=== PATIENT | male | born 1960 | race Caucasian/White ===

== ENCOUNTER 2016-08-05 20:22 | Emergency (ER) | payer SELFPAY ==
[~2016-08-05] VITALS: Ht 165.1 cm; Wt 74.4 kg
[~2016-08-05 20:22] MED LIST: ALBUTEROL0.09 MG/A1 IH; CLARITIN-D 5 MG1 T12 PO; ENALAPRIL10 MG PO; LEVOTHYROXINE0.2 M2 PO; SIMCOR 1000 MG-1 TER PO
[2016-08-05 20:28] VITALS: BP 145/93
--- NOTE | 2016-08-05 21:19 | NUR ---
PT TAKEN TO OF2
--- NOTE | 2016-08-05 21:20 | NUR ---
Dr. Bethea evaluating patient
[2016-08-05] MEDS ORDERED: methylPREDNISolone SS 125 MG in WATER STERILE 2 ML IM ONE (21:25)
[2016-08-05] MEDS ORDERED: ALBUTEROL 0.083% 2.5 MG/3 ML NEBU INH ONE (21:25)
--- NOTE | 2016-08-05 21:37 | NUR ---
RT WITH PATIENT
--- NOTE | 2016-08-05 21:38 | NUR ---
PATIENT PRESENTS TO ED WITH NON-PRODUCTIVE COUGH . PT STATES HE NEEDS A MED-REFILL FOR HIS INHALER. PT REPORTS HX OF ASTHMA . DENIES N/V/D; SKIN IS PINK/WARM/DRY; AAOX4 WITH EVEN AND STEADY GAIT; LUNGS CLEAR BL; HR EVEN AND REGULAR; PT DENIES ANY FEVER, SOB AT THIS TIME; PATIENT STATES PAIN OF 4/10 AT THIS TIME; VSS; PATIENT POSITIONED FOR COMFORT; HOB ELEVATED; BEDRAILS UP X2; BED DOWN. ER MD MADE AWARE OF PT STATUS.
[2016-08-05 22:18] VITALS: BP 137/78
--- NOTE | 2016-08-05 22:18 | NUR ---
Patient discharged with v/s stable. Written and verbal after care instructions given and explained. Patient alert, oriented and verbalized understanding of instructions. Ambulatory with steady gait. All questions addressed prior to discharge. ID band removed. Patient advised to follow up with PMD. Rx of QVar and Proventil given. Patient educated on indication of medication including possible reaction and side effects. Opportunity to ask questions provided and answered.
== END 2016-08-05 22:18 | disposition home or self-care (01) ==
LOC: MED 20:22
DX: J45.901 Unspecified asthma with (acute) exacerbation (principal); I10 Essential (primary) hypertension; Z91.010 Allergy to peanuts; Z79.899 Other long term (current) drug therapy
CPT/HCPCS: 94640; 96372; 99283; J2930; J7613

== ENCOUNTER 2017-09-17 13:51 | Emergency (ER) | payer SELFPAY ==
[~2017-09-17] VITALS: Ht 165.1 cm; Wt 77.3 kg
[~2017-09-17 13:51] MED LIST changes: +ALBU0.0939 IH; -ALBUTEROL0.09 MG/A1 IH; -CLARITIN-D 5 MG1 T12 PO; +ENAL10TA PO; -ENALAPRIL10 MG PO; -LEVOTHYROXINE0.2 M2 PO; +LORA1T1237 PO; -SIMCOR 1000 MG-1 TER PO; +[UNRECOGNIZED DRUG - CODE] PO; +[UNRECOGNIZED DRUG - CODE] PO
[2017-09-17 14:00] VITALS: BP 124/90
--- NOTE | 2017-09-17 14:04 | NUR ---
PT AMBULATED TO BED 10
--- NOTE | 2017-09-17 14:06 | NUR ---
PATIENT PRESENTS TO ED WITH C/O SOB LAST NIGHT, TOOK INHALER WITH NO RELIEF HX; ASTHMA, HTN, PSORIASIS, HYPOTHYROIDISM. AAOX4 WITH EVEN AND STEADY GAIT; LUNGS WHEEZING BL; NONPRODUCTIVE COUGHING NOTED, HR EVEN AND REGULAR; PT DENIES ANY FEVER, CP AT THIS TIME;DENIES N/V/D; SKIN IS PINK/WARM/DRY; DENIES PAIN, VSS; PATIENT POSITIONED FOR COMFORT; HOB ELEVATED; BEDRAILS UP X2; BED DOWN. ER MD MADE AWARE OF PT STATUS.
[2017-09-17] MEDS ORDERED: ALBUTEROL SULFATE/IPRATROPIU 3 ML SOL IH ONE (14:10)
[2017-09-17] MEDS ORDERED: ALBUTEROL 0.083% 2.5 MG/3 ML NEBU INH ONE (14:10)
[2017-09-17] MEDS ORDERED: predniSONE 20 MG TAB PO ONE (14:10)
--- NOTE | 2017-09-17 14:18 | NUR ---
DR CORREA EVALUATING PT AT BEDSIDE
--- NOTE | 2017-09-17 14:18 | NUR ---
RT AT BEDSIDE
[2017-09-17 14:53] VITALS: BP 144/91
--- NOTE | 2017-09-17 14:53 | NUR ---
Patient discharged with v/s stable. Written and verbal after care instructions given and explained. Patient alert, oriented and verbalized understanding of instructions. Ambulatory with steady gait. All questions addressed prior to discharge. ID band removed. Patient advised to follow up with PMD. Rx of prednisone and albuterol , budesonide given. Patient educated on indication of medication including possible reaction and side effects. Opportunity to ask questions provided and answered.
== END 2017-09-17 14:53 | disposition home or self-care (01) ==
LOC: MED 13:51
DX: J45.901 Unspecified asthma with (acute) exacerbation (principal); Z91.010 Allergy to peanuts; Z91.012 Allergy to eggs; I10 Essential (primary) hypertension; E03.9 Hypothyroidism, unspecified
CPT/HCPCS: 94640; 99283; J7512; J7613; J7620

== ENCOUNTER 2017-11-13 09:59 | Emergency (ER) | payer MEDICAID ==
[~2017-11-13] VITALS: Ht 165.1 cm; Wt 76.4 kg
[2017-11-13 10:05] VITALS: BP 133/92
[2017-11-13] MEDS ORDERED: ATOR10TA PO (10:31)
--- NOTE | 2017-11-13 10:40 | NUR ---
PT AMBULATED TO ER BED 3.
--- NOTE | 2017-11-13 10:51 | NUR ---
57/M PRESENT TO ER C/O SOB SINCE LAST NIGHT; RUN OUT OF NEBULIZER MEDICATION ALBUTEROL, BUDESONIDE. DENIES N/V/D; SKIN IS PINK/WARM/DRY; AAOX4 WITH EVEN AND STEADY GAIT; HR EVEN AND REGULAR; PT DENIES ANY FEVER, CP, OR COUGH AT THIS TIME; PATIENT STATES PAIN OF 0/10 AT THIS TIME; VSS; PATIENT POSITIONED FOR COMFORT; HOB ELEVATED; BEDRAILS UP X2; BED DOWN. ER MD MADE AWARE OF PT STATUS.
--- NOTE | 2017-11-13 11:01 | NUR ---
Patient being evaluated by physician at bedside.
[2017-11-13] MEDS ORDERED: predniSONE 20 MG TAB PO ONE (11:10)
[2017-11-13] MEDS ORDERED: IPRATROPIUM 0.02% 0.5 MG/2.5 ML NEBU INH ONE (11:10)
[2017-11-13] MEDS ORDERED: ALBUTEROL 0.083% 2.5 MG/3 ML NEBU INH ONE (11:10)
--- NOTE | 2017-11-13 11:59 | NUR ---
Patient discharged with v/s stable. Written and verbal after care instructions given and explained. Patient alert, oriented and verbalized understanding of instructions. Ambulatory with steady gait. All questions addressed prior to discharge. ID band removed. Patient advised to follow up with PMD. Rx of PREDNISONE 20MG, ALBUTEROL 0.083%, BEUDESONIDE 0.5/2ML INH SUSP. given. Patient educated on indication of medication including possible reaction and side effects. Opportunity to ask questions provided and answered.
[2017-11-13 12:01] VITALS: BP 121/82
== END 2017-11-13 11:59 | disposition home or self-care (01) ==
LOC: MED 09:59
DX: J45.901 Unspecified asthma with (acute) exacerbation (principal); I10 Essential (primary) hypertension; E03.9 Hypothyroidism, unspecified; Z79.899 Other long term (current) drug therapy; Z91.012 Allergy to eggs; Z91.011 Allergy to milk products; Z91.018 Allergy to other foods
CPT/HCPCS: 94640; 99283; J7512; J7613; J7644

== ENCOUNTER 2018-09-26 16:23 | Emergency (ER) | payer OTHER ==
[~2018-09-26] VITALS: Ht 165.1 cm; Wt 77.1 kg
[~2018-09-26 16:23] MED LIST changes: +ATOR10TA PO; -ENAL10TA PO; +ENAL10TA34 PO
[2018-09-26 16:29] VITALS: BP 121/72
--- NOTE | 2018-09-26 16:34 | NUR ---
PT AMBULATES TO BED 7
[2018-09-26] MEDS ORDERED: ALBUTEROL SULFATE/IPRATROPIU 3 ML SOL IH ONE ×2 (16:40→17:00)
[2018-09-26] MEDS ORDERED: predniSONE 20 MG TAB PO ONE (16:40)
--- NOTE | 2018-09-26 16:42 | NUR ---
PT C/O SOB SINCE LAST NIGHT. USED INHALER , NOT RELIEVED. RLL AND LLL WHEEZING. HX. ASTHMA. VSS; PATIENT POSITIONED FOR COMFORT; HOB ELEVATED; BEDRAILS UP X1; BED DOWN. ER MD MADE AWARE OF PT STATUS.
[2018-09-26 17:34] VITALS: BP 121/72
--- NOTE | 2018-09-26 17:34 | NUR ---
Patient discharged with v/s stable. Written and verbal after care instructions given and explained. Patient alert, oriented and verbalized understanding of instructions. Ambulatory with steady gait. All questions addressed prior to discharge. ID band removed. Patient advised to follow up with PMD. Rx of PREDNISONE, ALBUTEROL SULFATE AND INHALER given. Patient educated on indication of medication including possible reaction and side effects. Opportunity to ask questions provided and answered.
== END 2018-09-26 17:34 | disposition home or self-care (01) ==
LOC: MED 16:23
DX: J45.901 Unspecified asthma with (acute) exacerbation (principal); I10 Essential (primary) hypertension; E03.9 Hypothyroidism, unspecified; Z79.899 Other long term (current) drug therapy; Z91.018 Allergy to other foods
CPT/HCPCS: 94640; 99284; J7512; J7620

== ENCOUNTER 2019-07-25 08:38 | Emergency (ER) | payer MEDICAID, OTHER ==
[~2019-07-25] VITALS: Ht 165.1 cm; Wt 79.4 kg
[2019-07-25 08:43] VITALS: BP 134/70
--- NOTE | 2019-07-25 08:49 | NUR ---
Patient ambulated to bed 8. RN evaluating patient at bedside.
--- NOTE | 2019-07-25 08:52 | NUR ---
58 y/o m presents to ER c/o right sided abdominal pain radiating to the back x2 days. Pain level 5/10. Pt was seen at [facility] and per pt they tested everything except his urine and he wants to get his urine tested. Pt received [place] at [facility] which helped the pain, but the pain returned. Pt denies any urinary symptoms. HOB elevated, bed in lowest position, bed rail up x1. Waiting for ERMD to evaluate pt. Allergies: NKA Med hx: kidney stones, asthma, cirrohsis
--- NOTE | 2019-07-25 09:11 | NUR ---
Dr. Cole evaluating pt at bedside
--- NOTE | 2019-07-25 09:21 | NUR ---
Urine collected and sent to lab
[2019-07-25 09:27] LABS: APPEARANCE,URINE CLEAR (CLEAR); BILIRUBIN,URINE NEGATIVE (NEGATIVE); BLOOD, URINE 3+ (NEGATIVE); COLOR,URINE YELLOW (YELLOW); LEUKOCYTE ESTERASE ,URINE NEGATIVE (NEGATIVE); NITRITE, URINE NEGATIVE (NEGATIVE); UGLUCOSE NEGATIVE (NEGATIVE)
[2019-07-25 09:36] LABS: RBC,URINE 50-80 /HPF (0-5); WBC,URINE 0-5 /HPF (0-5)
--- NOTE | 2019-07-25 10:00 | NUR ---
Dr. Cole updating pt on discharge instructions. Dr. Cole encouraged pt to drink plenty of fluid and to take Ibuprofen 600mg every 6 hours as needed for pain.
[2019-07-25 10:03] VITALS: BP 134/70
--- NOTE | 2019-07-25 10:03 | NUR ---
Patient discharged with v/s stable. Written and verbal after care instructions given and explained. Patient verbalized understanding. Ambulatory with steady gait. All questions addressed prior to discharge. Advised to follow up with PMD.
== END 2019-07-25 10:03 | disposition home or self-care (01) ==
LOC: MED 08:38
DX: R10.9 Unspecified abdominal pain (principal); J45.909 Unspecified asthma, uncomplicated; I10 Essential (primary) hypertension; E07.9 Disorder of thyroid, unspecified; Z79.899 Other long term (current) drug therapy; Z87.442 Personal history of urinary calculi; Z91.010 Allergy to peanuts
CPT/HCPCS: 81001; 99283

== ENCOUNTER 2019-07-28 13:52 | Emergency (ER) | payer MEDICAID ==
[~2019-07-28] VITALS: Ht 170.2 cm; Wt 96.6 kg
[2019-07-28 14:15] VITALS: BP 131/85
--- NOTE | 2019-07-28 14:17 | NUR ---
PT TO BED 1
--- NOTE | 2019-07-28 14:22 | NUR ---
58/m C/O RASH TO PTS CHEST AND BACK X 4 DAYS. PT STATES HE WAS SEEN IN [facility] X 2 DAYS AGO AND DIAGNOSED WITH SHINGLES. CLEAR VESICLES ON ERYTHEMATOUS BASE NOTED ON RT CHEST ANTERIORLY AND POSTERIORLY THAT DOES NOT CROSS THE MIDLINE. NO OPEN VESICLES SEEN. PT STATES PAIN HAS BEEN PRESENT X 4 DAYS, BURNING SENSATION. RX WITH TRAMADOL AND ACYCLOVIR. PT STATES THE PAIN IS INCREASING. NO ITCHING. PT REQUESTING STRONGER PAIN MED. PLAQUE LESIONS ON ABD THAT PT STATES IS PSORIASIS. HX- PSORIASIS
--- NOTE | 2019-07-28 15:02 | NUR ---
DR OROPEZA EVALUATING PT AT BEDSIDE
[2019-07-28 15:14] LABS: APPEARANCE,URINE CLEAR (CLEAR); BILIRUBIN,URINE NEGATIVE (NEGATIVE); BLOOD, URINE 3+ (NEGATIVE); COLOR,URINE YELLOW (YELLOW); LEUKOCYTE ESTERASE ,URINE NEGATIVE (NEGATIVE); NITRITE, URINE NEGATIVE (NEGATIVE); UGLUCOSE NEGATIVE (NEGATIVE)
--- NOTE | 2019-07-28 15:44 | NUR ---
PER PT, DUE TO INSURANCE HE WOULD NOT BE ABLE TO FILL THE RX WRITTEN FROM TODAY (NORCO) UNTIL TOMORROW. HE IS REQUESTING FOR ONE TABLET OF NORCO BEFORE D/C. STATES HIS IS ON THE WAY TO PICK HIM UP FROM HOSPITAL. NOTIFIED DR. OROPEZA.
[2019-07-28] MEDS ORDERED: HYDROcodone/APAP 10/325 MG 1 TAB TAB PO ONE (15:45)
--- NOTE | 2019-07-28 16:05 | NUR ---
DPatient discharged with v/s stable. Written and verbal after care instructions given and explained. Patient alert, oriented and verbalized understanding of instructions. Ambulatory with steady gait. All questions addressed prior to discharge. ID band removed. Patient advised to follow up with PMD. Rx of NORCO given. Patient educated on indication of medication including possible reaction and side effects. Opportunity to ask questions provided and answered. Addendum: 07/28/19 at [address]IVE PT HOME
[2019-07-28 16:06] LABS: RBC,URINE 11-20 (MOD) /HPF (0-5); WBC,URINE 0-5 /HPF (0-5)
[2019-07-28 16:34] VITALS: BP 118/88
== END 2019-07-28 16:05 | disposition home or self-care (01) ==
LOC: MED 13:52
DX: B02.9 Zoster without complications (principal); J45.909 Unspecified asthma, uncomplicated; I10 Essential (primary) hypertension; E03.9 Hypothyroidism, unspecified; Z87.442 Personal history of urinary calculi; Z79.899 Other long term (current) drug therapy; Z91.018 Allergy to other foods
CPT/HCPCS: 81001; 99283

== ENCOUNTER 2019-08-14 08:49 | Emergency (ER) | payer MEDICAID ==
[~2019-08-14] VITALS: Ht 165.1 cm; Wt 79.4 kg
[2019-08-14 08:50] VITALS: BP 150/90
--- NOTE | 2019-08-14 08:50 | NUR ---
TO BED # 12 AMBULATORY
--- NOTE | 2019-08-14 09:06 | NUR ---
XRAY AT BEDSIDE
--- NOTE | 2019-08-14 09:22 | NUR ---
ERMD AT BEDSIDE
[2019-08-14] MEDS ORDERED: methylPREDNISolone SS 125 MG/2 ML VIAL IVP ONE (09:25)
[2019-08-14] MEDS ORDERED: NACL 0.9% 500 ML IV ONE (09:25)
[2019-08-14] MEDS ORDERED: ALBUTEROL 0.083% 2.5 MG/3 ML NEBU INH ONE ×2 (09:25→11:00)
[2019-08-14] MEDS ORDERED: MAG SULF 2000 MG/WATER PREMIX 50 ML IV ONE (09:25)
--- NOTE | 2019-08-14 09:32 | NUR ---
59 Y/O MALE PRESENTS TO ER WITH C/O COUGH X 2 DAYS. PMH: HTN, PSORIASIS, SHINGLES X 3 WEEKS AGO. NKDA, BUT HAS FOOD ALLERGIES TO MILK, BEEF, PEANUTS. PT STATES THE ONLY PRESCRIBED MEDICATION HE TAKES IS ALBUTEROL NEBULIZER TX, AND QVAR. PT RATES COUGH AT A 5, AND STATES SOME WHITE AND GREEN SPUTUM IS EXPELLED. RIGHT SIDE OF CHEST, AND BACK HURTS ONLY WHEN COUGHING. DENIES ANY HEADACHE, NAUSEA, DIARRHEA, OR VOMITING. SIDERAIL X1. WILL CONTINUE TO MONITOR.
--- NOTE | 2019-08-14 09:57 | NUR ---
TAKEN TO CT VIA WHEELCHAIR
--- NOTE | 2019-08-14 10:17 | NUR ---
PT RESTING IN BED, SIDE RAIL X1
--- NOTE | 2019-08-14 11:18 | NUR ---
Breathing treatment administered by respiratory therapist at bedside.
[2019-08-14 11:44] VITALS: BP 144/81
--- NOTE | 2019-08-15 11:26 | NUR ---
Late entry. Confirmed with RN that 0.9 NS IV completed at 1030. Mag completed at 1140
== END 2019-08-14 11:44 | disposition home or self-care (01) ==
LOC: MED 08:49
DX: J45.901 Unspecified asthma with (acute) exacerbation (principal); I10 Essential (primary) hypertension; E03.9 Hypothyroidism, unspecified; Z91.018 Allergy to other foods; Z79.899 Other long term (current) drug therapy
CPT/HCPCS: 71045; 71250; 94640; 96365; 96366; 96375; 99285; J2930; J3475; J7030; J7613; Q0092

== ENCOUNTER 2019-09-18 16:40 | Emergency (ER) | payer MEDICAID ==
[~2019-09-18] VITALS: Ht 165.1 cm; Wt 78.9 kg
[2019-09-18 16:44] VITALS: BP 119/83
--- NOTE | 2019-09-18 16:50 | NUR ---
pt. ambulated to ER 11 with steady gait.
--- NOTE | 2019-09-18 16:56 | NUR ---
c/o sob/cough x2 days. pt uses qvar and ventolin at home but it is not providing relief at this time. denies fever, 02 sat 95% ra. hr 114. Wheezes heard on bilateral lower lobes with productive cough. pt. is A/O x 4, no n/v/d. hx: asthma, COPD, psoriasis, gastritis, shingles
--- NOTE | 2019-09-18 17:09 | NUR ---
VSS. reports of mucus build up. no further needs at this time. pt. sitting at bedside. will continue to monitor.
--- NOTE | 2019-09-18 17:13 | NUR ---
dr lynn at bedside evaluating pt.
--- NOTE | 2019-09-18 17:37 | NUR ---
Patient discharged with v/s stable. Written and verbal after care instructions given and explained regarding bronchial asthma. Patient alert, oriented and verbalized understanding of instructions. Ambulatory with steady gait. All questions addressed prior to discharge. ID band removed. Patient advised to follow up with PMD. Rx of albuterol and prednisone given. Patient educated on indication of medication including possible reaction and side effects. Opportunity to ask questions provided and answered.
[2019-09-18 17:39] VITALS: BP 119/83
== END 2019-09-18 17:37 | disposition home or self-care (01) ==
LOC: MED 16:40
DX: J44.9 Chronic obstructive pulmonary disease, unspecified (principal); I10 Essential (primary) hypertension; E03.9 Hypothyroidism, unspecified; Z79.899 Other long term (current) drug therapy; Z91.010 Allergy to peanuts
CPT/HCPCS: 99283

== ENCOUNTER 2020-02-21 04:25 | Emergency (ER) | payer MEDICAID ==
[~2020-02-21] VITALS: Ht 165.1 cm; Wt 81.2 kg
[2020-02-21 04:29] VITALS: BP 156/102
--- NOTE | 2020-02-21 04:35 | NUR ---
PT AMBULATED TO BED 2 WITH STEADY GAIT
--- NOTE | 2020-02-21 04:37 | NUR ---
59 Y/O MALE C/O FEVER AND WEAKNESS X 2 DAYS. DENIES N/V/D/LOSS OF SMELL/TASTE. PT STATES WAS AT [facility] 2 DAYS AGO AND MIGHT HAVE HAD A "HEAT STROKE." PT HYPERTENSIVE AT 156/102 AND TACHYCARDIC AT 130 BPM. SKIN IS PINK/HOT/DRY; AAOX4 WITH EVEN AND STEADY GAIT; PT DENIES ANY CP, SOB, OR COUGH AT THIS TIME; PATIENT STATES PAIN OF 4/10 AT THIS TIME; PATIENT POSITIONED FOR COMFORT; HOB ELEVATED; BEDRAILS UP X2; BED DOWN AND LOCKED. MHX: ASTHMA ALLERGIES: PEANUT BUTTER, MILK, EGGS, BEEF
--- NOTE | 2020-02-21 04:40 | NUR ---
URINE SAMPLE OBTAINED
[2020-02-21] MEDS ORDERED: IBUPROFEN 600 MG TAB PO ONE (04:45)
[2020-02-21] MEDS ORDERED: NACL 0.9% 1,000 ML IV ONE ×2 (04:45→06:15)
[2020-02-21] MEDS ORDERED: hydrALAZINE 20 MG/ML VIAL IVP ONE (04:50)
--- NOTE | 2020-02-21 04:55 | NUR ---
LABS DRAWN FROM IV START
[2020-02-21] MEDS ORDERED: ACETAMINOPHEN EXTRA STRENGTH 500 MG TAB PO ONE (05:15)
--- NOTE | 2020-02-21 05:30 | NUR ---
EKG PERFORMED AT BEDSIDE
[2020-02-21 05:40] LABS: BASOPHILS % (AUTO) 0.4 % (0.0-2.0); HEMATOCRIT 47.2 % (36-52); HEMOGLOBIN 15.9 g/dL (12.0-18.0); LYMPHOCYTES # (AUTO) 0.4 K/uL (2.0-11.5); LYMPHOCYTES % (AUTO) 6.3 % (20.5-51.1); MEAN CORPUSCULAR HEMOGLOBIN 31 pg (27-31); MEAN CORPUSCULAR HGB CONC 34 g/dL (33-37); MEAN CORPUSCULAR VOLUME 90.5 fL (80-94); MONOCYTES # (AUTO) 0.9 K/uL (0.8-1.0); MONOCYTES % (AUTO) 13.4 % (1.7-9.3); NEUTROPHILS # (AUTO) 5.5 K/uL (1.8-7.7); NEUTROPHILS % (AUTO) 79.9 % (42.2-75.2); PLATELET COUNT (AUTO) 153 K/uL (140-450); RED BLOOD CELL COUNT(AUTO) 5.21 MIL/uL (4.20-6.10); RED CELL DISTRIBUTION WIDTH 14.8 % (11.6-13.7); WHITE BLOOD COUNT (AUTO) 6.9 K/uL (4.8-10.8)
--- NOTE | 2020-02-21 05:40 | NUR ---
PT RESTING IN BED IN POSITION OF COMFORT, BED LOW AND LOCKED, 2 SIDERAILS UP, BP 108/69; HR 128; WILL CONTINUE TO MONITOR.
[2020-02-21 05:46] LABS: APPEARANCE,URINE CLEAR (CLEAR); BILIRUBIN,URINE NEGATIVE (NEGATIVE); BLOOD, URINE 3+ (NEGATIVE); COLOR,URINE YELLOW (YELLOW); LEUKOCYTE ESTERASE ,URINE NEGATIVE (NEGATIVE); NITRITE, URINE NEGATIVE (NEGATIVE); UGLUCOSE NEGATIVE (NEGATIVE)
[2020-02-21 05:55] LABS: ALBUMIN 3.8 g/dL (3.4-5.0); ANION GAP 14.7 (8-16); CARBON DIOXIDE 25.4 mmol/L (21-32); CREATININE 1.3 mg/dL (0.6-1.3); POTASSIUM 4.1 mmol/L (3.5-5.1); TOTAL BILIRUBIN 0.8 mg/dL (0.0-1.0)
[2020-02-21] MEDS ORDERED: DILTIAZEM 25 MG/5 ML VIAL IVP ONE (05:55)
--- NOTE | 2020-02-21 06:12 | NUR ---
INFORMED ERMD BP 101/64 AND HR 112 AND ERMD STATED TO HOLD CARDIZEM; NOTED AND CARRIED OUT
[2020-02-21 06:13] LABS: WBC,URINE 0-5 /HPF (0-5)
--- NOTE | 2020-02-21 06:42 | NUR ---
COVID SWAB DONE AND WALKED TO LAB
[2020-02-21 06:45] LABS: BARBITURATE, URINE NEGATIVE ng/ml (NEG <=200); BENZODIAZEPINE, URINE NEGATIVE ng/mL (NEG <=200); CANNABINOID, URINE NEGATIVE ng/mL (NEG <=50); COCAINE, URINE NEGATIVE ng/mL (NEG <=300); OPIATE, URINE NEGATIVE ng/mL (NEG <=2000); PHENCYCLIDINE SCREEN,URINE NEGATIVE ng/mL (NEG <=25)
--- NOTE | 2020-02-21 06:54 | NUR ---
PT SIGNED CONSENT FOR CTA W/CONTRAST
--- NOTE | 2020-02-21 07:03 | NUR ---
PT TAKEN TO CT VIA W/C
--- NOTE | 2020-02-21 07:09 | NUR ---
Pt report given to SAULO DOUGLAS . Transfer of care at this time.
--- NOTE | 2020-02-21 07:09 | NUR ---
RECEIVED REPORT FROM CROW ERIC IN [facility]SCAN.
--- NOTE | 2020-02-21 07:22 | NUR ---
iv gauge [address] scan .
--- NOTE | 2020-02-21 07:24 | NUR ---
pt back from [facility] via [facility] with stable v/s.
--- NOTE | 2020-02-21 07:42 | NUR ---
dr cano at bedside reevaluating pt.
--- NOTE | 2020-02-21 08:09 | NUR ---
pt comfortable in bed , gave breakfast tray at bedside , pt eating.
[2020-02-21 08:32] VITALS: BP 101/64
--- NOTE | 2020-02-21 08:33 | NUR ---
Patient discharged with v/s stable. Written and verbal after care instructions given and explained viral syndrome. Patient alert, oriented and verbalized understanding of instructions. Ambulatory with steady gait. All questions addressed prior to discharge. ID band removed. Patient advised to follow up with PMD. Rx of lisinopril and tylenol given. Patient educated on indication of medication including possible reaction and side effects. Opportunity to ask questions provided and answered.
--- NOTE | 2020-02-23 05:13 | NUR ---
LATE ENTRY -- RECEIVED POSITIVE COVID RESULTS. COPY OF RESULT GIVEN TO [employer]IL[employer].
== END 2020-02-21 08:32 | disposition home or self-care (01) ==
LOC: MED 04:25
DX: R50.9 Fever, unspecified (principal); Z20.828 Contact with and (suspected) exposure to other viral communicable diseases; R00.0 Tachycardia, unspecified; I10 Essential (primary) hypertension; R79.1 Abnormal coagulation profile; R74.0 Nonspecific elevation of levels of transaminase and lactic acid dehydrogenase [LDH]
CPT/HCPCS: 36415; 71045; 71275; 80053; 80305; 81001; 83605; 83880; 84484; 85025; 85379; 87040; 87086; 93005; 96361; 96374; 99285; G0482; J0360; J3490; Q0092; Q9967; U0003

== ENCOUNTER 2020-02-23 04:03 | Emergency (ER) | payer MEDICAID ==
[~2020-02-23] VITALS: Ht 165.1 cm; Wt 75.3 kg
--- NOTE | 2020-02-23 04:12 | NUR ---
PT TAKEN TO OVERFLOW TENT
[2020-02-23 04:17] VITALS: BP 131/78
--- NOTE | 2020-02-23 04:25 | NUR ---
pt presents to the ED with c/o congestion. pt states he has been using his nebulizer at home but still feels congested. pt reports productive cough. pt on room air at this time. no SOB or s/s of distress. MD made aware of patient's status
--- NOTE | 2020-02-23 04:26 | NUR ---
Dr. Raines examining patient.
[2020-02-23] MEDS ORDERED: predniSONE 20 MG TAB PO ONE (04:30)
[2020-02-23 04:43] VITALS: BP 131/78
== END 2020-02-23 04:43 | disposition home or self-care (01) ==
LOC: MED 04:03
DX: U07.1 COVID-19 (principal); J45.901 Unspecified asthma with (acute) exacerbation; J44.9 Chronic obstructive pulmonary disease, unspecified; E03.9 Hypothyroidism, unspecified; I10 Essential (primary) hypertension; Z91.010 Allergy to peanuts; Z79.899 Other long term (current) drug therapy
CPT/HCPCS: 99283; J7512